=== PATIENT | male | born 1990 | race Caucasian/White ===

== ENCOUNTER 2016-07-16 12:28 | Emergency (ER) | payer BC ==
[2016-07-16] MEDS ORDERED: BACITRACIN 1 APP/PKT PKT TOPICAL ONE (13:19)
[2016-07-16] MEDS ORDERED: HYDROcodone/APAP 5/325 MG 1 TAB TABLET PO ONE (13:20)
--- NOTE | 2016-07-16 13:31 | ER NURSING DOCUMENTATION ---
Nurse's Notes [facility] Name:Tyron Limon Age:26 yrs Sex:Male :1990 Arrival Date:07/16/2016 Time:12:28 Bed5 Private MD: Diagnosis:Shoulder Separation Presentation: 07/16 12:32 Transition of care: patient was not received from another setting of care. Notified ED nf Physician of patient's arrival and CC Dr. Salmon notified. 12:32 Acuity: DELANEY 3 nf 12:32 Method Of Arrival: Walk In nf 12:42 Presenting complaint: Patient states: fell onto right shoulder yesterday snowboarding, nf now complains of clavicle pain. Triage Assessment: 12:35 Musculoskeletal: Circulation, motion, and sensation intact Capillary refill < 3 seconds nf Range of motion limited in right shoulder due to discomfort no swelling or deformity Tenderness. 12:35 Derm: multiple abrasions to right shoulder/upper scapula, no drainage, no redness or nf swelling to the area. 12:50 General: Appears well nourished, well groomed, Behavior is pleasant. Pain: Complains of nf pain in right clavicle. Injury Description: blunt. Historical: - Allergies: No known drug Allergies; - Home Meds: 1. None - PMHx: None; - PSHx: hernia repair at age 4; right lower arm and hand skin graft; - Tetanus: < 10 years. - Ebola Screening: : No symptoms or risks identified at this time. . - Immunization history: Flu Vaccine unknown. - Social history: Smoking status: unknown if patient ever smoked tobacco. Screenin:35 Infectious Disease Risk None. Abuse screen: Denies threats or abuse. Nutritional nf screening: No deficits noted. Assessment: 12:57 See Triage Assessment done by same RN. nf 13:27 Reassessment: CMS intact distally after sling application. nf Vital Signs: 12:35 BP 126 / 88; Pulse 70; Resp 12; Temp 98.1; Pulse Ox 96% on R/A; Weight 63.5 kg; Height nf 6 ft. 0 in. (182.88 cm); Pain 5/10; 13:27 BP 118 / 81; Pulse 73; Resp 12; Pulse Ox 97% on R/A; Pain 3/10; nf 12:35 Body Mass Index 18.99 (63.50 kg, 182.88 cm) ED Course: 12:29 Patient arrived in ED. arc 12:31 Fran Salmon MD is Attending Physician. tl1 12:31 Aida Luis RN is Primary Nurse. nf 12:33 Triage completed. nf 12:35 Arm band placed on Bed in low position Call Light in Reach Gowned Side rails up x1. nf Affected limb iced. 12:35 Valuables Remains with patient. Door closed. Noise minimized. Lights dimmed. Moved to private room. Verbal reassurance given. Warm blanket given. Pillow given. 12:38 Patient moved to radiology. pm1 12:48 Patient moved back from radiology. pm1 12:54 Jimi Mcneal MD, Naeem García DO is Referral Physician. tl1 13:20 Dressings: 2 large bandaids. Wound care to abrasion, was cleaned with soap and water, nf Patient tolerated well. 13:20 Sling applied to right arm. nf Administered Medications: 13:07 CANCELLED (Other Intervention Used): Vicodin (5 mg-500 mg) 2 tabs PO once nf 13:20 Drug: Bacitracin Ointment (500 unit/g) 1 application; Route: Topical; Site: wound; nf 13:47 Follow up: Response: Medication administered at discharge. nf 13:20 Drug: HYDROcodone-acetaminophen 5 mg-325 mg 2 tabs; {Note: with food.} Route: PO; nf 13:47 Follow up: Response: Medication administered at discharge. Outcome: 13:01 Discharge ordered by . tl1 13:27 Discharged to home ambulatory, with friend. nf 13:27 Condition: improved 13:27 Discharge instructions given to patient, Instructed on discharge instructions, follow up and referral plans. medication usage, no drinking with medication, no driving heavy equipment, [facility] Demonstrated understanding of instructions, medications, Prescriptions given X 2, norco and zofran 13:30 Patient left the ED. 07/17 09:11 Discharge F/U Call: Unable to reach: no answer 13:10 Discharge F/U Call: Spoke with: other: Name: work relies faxed to employer. st Signatures: Yuli Bennett RN RN Aida Luis RN RN George Hudson pm1 Viky, Fran, MD MD tl1 Chew, Alejandra, Reg Reg arc
--- NOTE | 2016-07-16 13:31 | ER PHYSICIAN DOCUMENTATION ---
Physician Documentation [facility] Name:Tyron Limon Age:26 yrs Sex:Male :1990 Arrival Date:07/16/2016 Time:12:28 Bed5 Private MD: Fran Gould Disposition: 07/16 13:59 Chart complete. tl1 Disposition: 07/16/16 13:01 Discharged to Home/Self Care. Impression: Shoulder Separation. - Condition is Good. - Discharge Instructions: SHOULDER IMMOBILIZER, SLING. - Prescriptions for [place] 7.5- 325 mg Oral - take 1 tablet by ORAL route every 6 hours As needed; 12 tablet. Zofran 4 mg Oral Tablet - take 1-2 tablet by ORAL route every 4-6 hours As needed; 10 tablet. - Medical Reconciliation form form. - Follow up: Jimi Mcneal MD, Naeem García DO; When: 4- 6 days; Reason: Recheck today's complaints, Continuance of care. - Problem is new. - Symptoms have improved. HPI: 12:30 This 26 yrs old Male presents to ER via Walk In with complaints of Arm Injury.tl1 12:30 The patient or guardian complains of injury. The complaints affect the posterior aspect tl1 of right shoulder. Context: resulted from a fall, snowboarding. Onset: The symptom(s)/episode began/occurred suddenly, yesterday. Treatment prior to arrival includes: no previous treatment. Severity of symptoms: At their worst the symptoms were moderate, in the emergency department the symptoms are unchanged. The patient has experienced a previous episode. fell backwards and to his right yesterday, landing on his right postero-superior shoulder. Because the pain has been persistent, he comes in for evaluation. He was unable to work today at the [place] area. Other than right shoulder pain, he has no complaints. Denies neck pain, n/w/t, CP, SOB, AP or any other extremity pain. He did sustains some superficial lacerations to his right upper lateral scapular area.. Historical: - Allergies: No known drug Allergies; - Home Meds: 1. None - PMHx: None; - PSHx: hernia repair at age 4; right lower arm and hand skin graft; - Tetanus: < 10 years. - Ebola Screening: : No symptoms or risks identified at this time. . - Immunization history: Flu Vaccine unknown. - Social history: Smoking status: unknown if patient ever smoked tobacco. ROS: 12:30 MS/extremity: Positive for injury or acute deformity, pain. tl1 12:30 All other systems are negative. Exam: 12:30 Constitutional: This is a well developed, well nourished patient who is awake, alert, tl1 and in no acute distress. Head/Face: Normocephalic, atraumatic. Neck: Trachea midline, no thyromegaly or masses palpated, and no cervical lymphadenopathy. Supple, full range of motion without nuchal rigidity, or vertebral point tenderness. No Meningismus. 12:30 Chest/axilla: Normal chest wall appearance and motion. Nontender with no deformity. tl1 No lesions are appreciated. 12:30 Cardiovascular: Rate: normal. 12:30 Respiratory: Respirations: normal. 12:30 Abdomen/GI: Palpation: abdomen is soft and non-tender. 12:30 Back: pain, is absent. 12:30 : Exam negative for CVA tenderness. 12:30 Musculoskeletal/extremity: Extremities: grossly normal except: noted in the posterior aspect of right shoulder: contusion, laceration, pain, tenderness, TTP over lateral and posterior AC joint. Superficial lacerations/scratches just posterior to that. ROM of right shoulder limited to (active) 15 deg flexion, 15 deg abduction, 30 deg extension. He has pain with external, but not internal motion against resistance. Unable to further examine due to limited ROM . Distal neurovascular exam is intact.. Vital Signs: 12:35 BP 126 / 88; Pulse 70; Resp 12; Temp 98.1; Pulse Ox 96% on R/A; Weight 63.5 kg; Height nf 6 ft. 0 in. (182.88 cm); Pain 5/10; 13:27 BP 118 / 81; Pulse 73; Resp 12; Pulse Ox 97% on R/A; Pain 3/10; nf 12:35 Body Mass Index 18.99 (63.50 kg, 182.88 cm) nf MDM: 12:30 Differential diagnosis: dislocation, closed fracture, contusion. Data reviewed: vital tl1 signs, nurses notes, radiologic studies, plain films, and as a result, I will discharge patient. Test interpretation: by ED physician or midlevel provider: plain radiologic studies. Counseling: I had a detailed discussion with the patient and/or guardian regarding: the historical points, exam findings, and any diagnostic results supporting the discharge/admit diagnosis, radiology results, the need for outpatient follow up, to return to the emergency department if symptoms worsen or persist or if there are any questions or concerns that arise at home. Response to treatment: the patient's symptoms have mildly improved after treatment, and as a result, I will discharge patient. ED course: provided with a sling for support.. 12:31 Patient medically screened. tl1 07/16 13:01 Order name: ORTHO: Arm Sling; Complete Time: 14:28 nf Dispensed Medications: 13:07 CANCELLED (Other Intervention Used): Vicodin (5 mg-500 mg) 2 tabs PO once nf 13:20 Drug: Bacitracin Ointment (500 unit/g) 1 application; Route: Topical; Site: wound; nf 13:47 Follow up: Response: Medication administered at discharge. nf 13:20 Drug: HYDROcodone-acetaminophen 5 mg-325 mg 2 tabs; {Note: with food.} Route: PO; nf 13:47 Follow up: Response: Medication administered at discharge. nf Signatures: Aida Luis RN RN Fran Gray MD MD tl1
--- NOTE | 2016-07-18 17:18 | RADIOLOGY REPORT ---
Views of the right clavicle demonstrate no fracture or other bony abnormality. Limited views of the joints are unremarkable. IMPRESSION: No displaced injury is identified. If there is concern for acromioclavicular injury further evaluation with views of both acromioclavicular joints with and without weights may be of benefit. MTDD
== END 2016-07-16 13:31 | disposition home or self-care (01) ==
LOC: ER 12:28
DX: S43.001A Unspecified subluxation of right shoulder joint, initial encounter (principal); V00.311A Fall from snowboard, initial encounter; Y92.838 Other recreation area as the place of occurrence of the external cause; Y93.23 Activity, snow (alpine) (downhill) skiing, snowboarding, sledding, tobogganing and snow tubing
CPT/HCPCS: 99284